=== PATIENT | male | born 1955 | race Caucasian/White ===

== ENCOUNTER 2018-08-02 12:30 | Day surgery (SDC) | payer OTHER ==
[2018-08-02] MEDS ORDERED: ASPIRIN EC 325 MG TAB PO ONE (12:39)
[2018-08-02] MEDS ORDERED: FAMOTIDINE 20 MG TAB PO ONE (12:39)
[2018-08-02] MEDS ORDERED: DIAZEPAM 5 MG TAB PO ONE (12:39)
[2018-08-02] MEDS ORDERED: diphenhydrAMINE 25 MG CAP PO ONE (12:39)
[2018-08-02] MEDS ORDERED: NS 1,000 ML IV ONE (12:39)
[2018-08-02 13:09] LABS: PLATELET COUNT 428 10^3/uL (150-400)
[2018-08-02] MEDS ORDERED: LIDOCAINE 1% 300 MG/30 ML SDV ONE (13:15)
[2018-08-02] MEDS ORDERED: MIDAZOLAM 2 MG/2 ML VIAL ONE (13:15)
[2018-08-02] MEDS ORDERED: IOPAMIDOL (ISOVUE-370) 150 ML BTL IV ONE (13:15)
[2018-08-02] MEDS ORDERED: fentaNYL 100 MCG/2 ML INJ ONE (13:15)
--- NOTE | 2018-08-02 13:17 | PDHPUP ---
History & Physical Update H&P update statement: This history and physical update is based on an assessment of the patient which was completed after admission or registration (within 24 hours), but prior to the surgery/procedure. H&P update: H&P reviewed & patient examined, no change in patient's condition since H&P completed
--- NOTE | 2018-08-02 13:17 | PDPROPOC ---
Sedation Plan of Care Sedation Plan of Care: vital signs stable, mental status noted, patient educated of risks, benefits, alternatives, patient can tolerate sedation ASA Classification: ASA 2 Planned drugs: fentanyl, midazolam Mallampati Score: Class 1 Mallampati Reference Image: Patient passed 3-3-2 rule?: Yes
[2018-08-02 13:18] LABS: INR 0.93 (0.83-1.16); PROTIME(PATIENT) 12.7 SEC (12.0-15.0)
[2018-08-02] MEDS ORDERED: ONDANSETRON 4 MG/2 ML VIAL IVP PRN (14:45)
[2018-08-02] MEDS ORDERED: NITROGLYCERIN 0.4 MG BTL SL PRN (14:45)
[2018-08-02] MEDS ORDERED: ATROPINE SULFATE 1 MG/10 ML SYR IVP PRN (14:45)
--- NOTE | 2018-08-02 14:50 | PDDXCAT ---
Diagnostic Cath Note - . Date: 08/02/18 Commissions Manager: Nikolai Indication: other (Symptoms of exertional dyspnea. Abnormal stress test with intermediate risk findings.) - Procedure Access: right groin - Materials Left Heart Cath materials: standard multipack (JL4, JR4, pigtail) - Findings-Left Heart Catheterization LM: Moderate caliber vessel. Very long course prior to developing the left anterior descending. Congenital absence of the circumflex. LAD: Moderate caliber vessel. 2 principal diagonal branches. Angiographically free of luminal disease. Evidence of eccentric calcifications of the coronary arteries proximally. 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 Minimal luminal irregularities without obstruction. RCA: Large caliber, dominant vessel. The PDA and large posterolateral branch are noted. Minimal luminal irregularities without obstruction. The circumflex originates from the proximal right coronary artery. EDP: 9 mmHg. LVEF: Greater than 70%. Wall motion: No ischemic appearing wall motion abnormalities. Complications: None. Estimated blood loss: <50ml Closure method: Angioseal Assessment: 1. No angiographic evidence of significant epicardial disease. 2. 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 3. Hyperdynamic left ventricular systolic function with no ischemic appearing wall motion abnormalities. 4. Low end-diastolic pressure. Plan: The patient will be evaluated for alternate etiologies for his symptoms. Intervention: None.
--- NOTE | 2018-08-02 16:04 | ECHO ---
[email or web address] [address] Main: [phone] Fax: [email or web address] Echocardiogram Name: LYLE CARLSON MR#: [id number] Study Date: 08/02/2018 Study Time: 01:46 PM Date of : 1955 Age: 62 year(s) Height: 182.9 cm (72 in.) Weight: 94.35 kg (208 lb.) BSA: 2.17 m2 Gender: Male Examination: Echo Indication: Shortness of breath, resting tachycardia Image Quality: Technically Difficult Contrast: Requested by: Anish Menchaca BP: 119 mmHg/84 mmHg Heart Rate: Rhythm: Indication: Shortness of breath, resting tachycardia Procedure Staff Glass Bender: Roseann Flores [facility] Reading Physician: Hugo Atkins MD Requesting Provider: Conclusions: Normal size left ventricle. Mild to moderate LVH. Normal global systolic LV function. EF is 66 %. Mildly dilated right ventricle. Low normal RV function. The mitral valve is normal in appearance and function. The aortic valve is tri-leaflet and functions normally. Right ventricular systolic pressure measures 38mmHg. Trivial pericardial effusion. No old studies for comparison. Measurements: Chambers Valvular Assessment AV/MV Valvular Assessment TV/PV Normal Normal Normal Name Value Range Name Value Range Name Value Range Ao Debbie (MM): 3.2 cm (2.2 cm-3.7 AV Vmax: 1.07 m/s (1 m/s-1.7 TR Vmax: 2.89 mm/s ( - ) cm) m/s) TR PGmax: 33 mmHg ( - ) IVSd (2D): 1.2 cm (0.6 cm-1.1 AV maxP mmHg ( - ) syst. PAP: 38 mmHg ( - ) cm) LVOT Vmax: 0.81 m/s (0.7 m/s-1.1 PV Vmax: 0.83 m/s (0.6 m/s-0.9 LVDd (2D): 4.3 cm (4.2 cm-5.9 m/s) m/s) cm) ENE (Vmax): 2.1 cm2 ( - ) PV PGmax: 3 mmHg ( - ) LVDs (2D): 2.2 cm (2.1 cm-4 MV E Vmax: 0.58 m/s ( - ) cm) MV A Vmax: 0.78 m/s ( - ) LVPWd (2D): 1.2 cm (0.6 cm-1 MV E/A: 0.74 ( - ) cm) LVOTd 1.9 cm 1.9 cm mm LVEF (BP): 66 % (>=55 %) RVDd(2D): 3.4 cm (1.9 cm-3.8 cmmm) Patient: LYLE CARLSON Study Date: 08/02/2018 Page 1 of 2 01:46 PM Continued Measurements: Chambers Valvular Assessment AV/MV Valvular Assessment TV/PV Name Value Name Value Name Value LADs: 3.7 cm MV DecTime: 137 m/s CVP (est.): 5 mmHg LADs Lon.2 cm MV E' Septal: 0.05 m/s LA Area: 16.6 cm2 MV E/E' Septal: 11.70 LA Volume: 41 ml MV E/E' Lateral: 14.20 LA Volume Index: 18.9 ml/m2 TAPSE: 1.6 cm RA Area: 11.3 cm2 Additional Vessels Name Value Ao Ascendin.2 cm Findings: Left Ventricle: Normal size left ventricle. Mild to moderate LVH. Normal global systolic LV function. EF is 66 %. No regional wall motion abnormality. Normal diastolic LV function. Right Ventricle: Mildly dilated right ventricle. Low normal RV function. Left Atrium: The left atrium is normal in size. Lipomatous interatrial septum. Right Atrium: The right atrium is normal in size. Mitral Valve: The mitral valve is normal in appearance and function. There is no mitral valve regurgitation. No mitral stenosis is present. Aortic Valve: The aortic valve is tri-leaflet and functions normally. There is no aortic valve regurgitation. No aortic valve stenosis is present. Tricuspid Valve: The tricuspid valve appears normal. Mild tricuspid regurgitation is present. Right ventricular systolic pressure measures 38mmHg. The pulmonary artery pressure is mildly increased. Pulmonic Valve: Pulmonary valve not well visualized. Aorta: Normal size aortic root measuring 3.2 cm. Normal size ascending aorta measuring 3.2 cm. IVC: Normal size and course of the IVC. Pericardium: Trivial pericardial effusion. (No Signature Object) Patient: LYLE CARLSON Study Date: 08/02/2018 Page 2 of 2 01:46 PM [id number]
--- NOTE | 2018-08-02 16:08 | CPEKG ---
Test Reason : OPEN Blood Pressure : / mmHG Vent. Rate : 104 BPM Atrial Rate : 104 BPM P-R Int : 140 ms QRS Dur : 091 ms QT Int : 350 ms P-R-T Axes : 022 -06 065 degrees QTc Int : 461 ms Sinus tachycardia Left atrial abnormality LVH with secondary repolarization abnormality Compared with 06/16/2018 HR faster, GIOVANI now noted. Repol abnl now seen Confirmed by Joanna Hoffman ([id number]) on 08/02/2018 4:08:29 PM Referred By: Confirmed By:Joanna Hoffman
[2018-08-02] MEDS ORDERED: IOPAMIDOL (ISOVUE 370) 100 ML BTL IV ONE (17:09)
== END 2018-08-02 18:15 | disposition home or self-care (01) ==
LOC: FCATH 12:30
PROVIDERS: ATTEND Internal Medicine Cardiovascular Disease
PROC: B2111ZZ Fluoroscopy of Multiple Coronary Arteries using Low Osmolar Contrast (ICD-10-PCS; principal; 2018-08-02)
PROC: B2151ZZ Fluoroscopy of Left Heart using Low Osmolar Contrast (ICD-10-PCS; principal; 2018-08-02)
PROC: 4A023N7 Measurement of Cardiac Sampling and Pressure, Left Heart, Percutaneous Approach (ICD-10-PCS; principal; 2018-08-02)
DX: R06.00 Dyspnea, unspecified (principal); R94.39 Abnormal result of other cardiovascular function study
CPT/HCPCS: C1760; J1644; J2250; J3010; Q9967

== ENCOUNTER → 2019-01-03 | Outpatient (CLI) | payer OTHER | LOC: FIMAGING 14:19 | PROVIDERS: ATTEND Family Medicine | DX: M25.851 Other specified joint disorders, right hip (principal); M16.7 Other unilateral secondary osteoarthritis of hip; Z96.642 Presence of left artificial hip joint ==

== ENCOUNTER 2019-02-06 07:58 | Inpatient (IN) | payer OTHER ==
[~2019-02-06 07:58] MED LIST: ROPIVACAINE 0.2% 80 MG, EPINEPHrine 0.2 MG, KETOROLAC TROMETHAMINE 30 MG in SYRINGE 0 ML IU ONE; TRANEXAMIC ACID 3,000 MG in NS (SYRINGE) 50 ML IRR ONE; TRANEXAMIC ACID 3,000 MG/50 ML BAG IRR ONE
[2019-02-06] MEDS ORDERED: FAMOTIDINE 20 MG TAB PO ONE (08:10)
[2019-02-06] MEDS ORDERED: ceFAZolin 2 GM/DEXTROSE 100 ML IV ONE (08:10)
[2019-02-06] MEDS ORDERED: ACETAMINOPHEN 325 MG TAB PO ONE (08:10)
[2019-02-06] MEDS ORDERED: LR 1,000 ML IV ONE (08:11)
[2019-02-06] MEDS ORDERED: MIDAZOLAM 2 MG/2 ML VIAL IVP ONE (09:35)
[2019-02-06] MEDS ORDERED: DIAZEPAM 5 MG/ML 1 ML SYR IVP PRN (09:37)
[2019-02-06] MEDS ORDERED: NALOXONE HCL 0.4 MG/ML INJ IVP PRN (09:37)
[2019-02-06] MEDS ORDERED: oxyCODONE IR 5 MG TAB PO PRN (09:37)
[2019-02-06] MEDS ORDERED: ACETAMINOPHEN 500 MG TAB PO PRN (09:37)
[2019-02-06] MEDS ORDERED: ONDANSETRON 4 MG/2 ML VIAL IVP PRN ×2 (09:37→11:23)
[2019-02-06] MEDS ORDERED: LR 500 ML IV PRN (09:37)
[2019-02-06] MEDS ORDERED: PROMETHAZINE HCL 25 MG/ML INJ IVP PRN ×2 (09:37→11:23)
[2019-02-06] MEDS ORDERED: ENALAPRILAT DIHYDRATE 1.25 MG/ML VIAL IVP PRN (09:37)
[2019-02-06] MEDS ORDERED: MIDAZOLAM 2 MG/2 ML VIAL ONE (09:37)
[2019-02-06] MEDS ORDERED: LABETALOL HCL 5 MG/ML 20 ML MDV IVP PRN (09:37)
--- NOTE | 2019-02-06 09:37 | PDANEPAE ---
ANE Past Medical History - Cardiovascular History Hx Hypertension: Yes Hx Arrhythmias: No Hx Chest Pain: No Hx Coronary Artery / Peripheral Vascular Disease: No Hx CHF / Valvular Disease: No Hx Palpitations: No - Pulmonary History Hx COPD: No Hx Asthma/Reactive Airway Disease: No Hx Recent Upper Respiratory Infection: No Hx Oxygen in Use at Home: No Hx Sleep Apnea: Yes Sleep Apnea Screening Result - Last Documented: Positive Pulmonary History Comment: CRESENCIO USES C-PAP - Neurologic History Hx Cerebrovascular Accident: No Hx Seizures: No Hx Dementia: No - Endocrine History Hx Diabetes: Yes Obesity: mild Endocrine History Comment: NIDDM. HYPOTHYROID - Renal History Hx Renal Disorders: Yes Renal History Comment: BPH - Liver History Hx Hepatic Disorders: No - Neurological & Psychiatric Hx Hx Neurological and Psychiatric Disorders: Yes Neurological / Psychiatric History Comment: ANXIETY/DEPRESSION. CLOSED HEAD INJURY 2014 - Cancer History Hx Cancer: Yes Cancer History Comment: SKIN - Congenital Disorder History Hx Congenital Disorders: No - GI History GERD: mild Hx Gastrointestinal Disorders: Yes Gastrointestinal History Comment: GERD - Other Health History Other Health History: DDD. NEW DX LEUKOCYTOSIS TO FU AFTER SURGERY - Chronic Pain History Chronic Pain: Yes (RT KNEE) - Surgical History Prior Surgeries: LITHOTRIPSY 05/2012. ORIF LT RADIUS/ELBOW. LT KNEE. LT TOTAL HIP 2014 ANE Review of Systems Review of Systems: - Exercise capacity METS (RN): 4 METS ANE Patient History - Allergies Allergies/Adverse Reactions: codeine Allergy (Verified 08/02/18 13:49) Vomiting prednisone Allergy (Verified 01/25/19 10:32) Agitated - Home Medications Home medications: home medication list seen and reviewed Home Medications: amLODIPine BESYLATE [Norvasc 10 mg (RX)] 10 mg PO DAILY 06/16/12 [Last Taken 07/18] Amphet Asp and D/Amphet [Adderall 20 mg (*)] 40 mg PO DAILY 08/02/18 [Last Taken 02/04/19] Aspirin [Aspirin 81mg (*)] 81 mg PO DAILY 08/02/18 [Last Taken 2 Weeks Ago ~] Atorvastatin Calcium [Lipitor 40 mg (*)] 80 mg PO HS 08/02/18 [Last Taken ] Cholecalciferol Vit D3 [Vitamin D3 2000 units tab (OTC)] 2,000 units PO HS 08/02 [Last Taken 2 Weeks Ago ~01/23/19] Hydrocodone/Acetaminophen [[place] 5/325 (*)] 1 - 2 tab PO Q4-6PRN PRN 08/02/18 [ Last Taken 02/05/19] Levothyroxine [Synthroid 125 mcg (*)] 125 mcg PO DAILY06 08/02/18 [Last Taken ] Metoprolol Tartrate [Lopressor 25 mg (*)] 12.5 mg PO BID 08/02/18 [Last Taken ] [place]-3 Fatty Acids [Fish Oil 1000 mg (*)] 1,000 mg PO HS 08/02/18 [Last Taken 2 Weeks Ago ~01/23/19] Pioglitazone HCl [Actos] 30 mg PO DAILY 08/02/18 [Last Taken 02/05/19] Valsartan/Hydrochlorothiazide [Valsartan-Hctz 320-25 mg Tab] 0.5 each PO BID 02/14 [Last Taken 02/05/19] buPROPion XL [Wellbutrin Xl] 300 mg PO DAILY 08/02/18 [Last Taken 02/06/19] lamoTRIgine [Lamictal] 225 mg PO HS 08/02/18 [Last Taken 02/05/19] metFORMIN HCL [Glucophage 1000 mg] 1,000 mg PO BID 08/02/18 [Last Taken 02/05/19 ] Glimepiride [Amaryl] 4 mg PO DAILY 01/25/19 [Last Taken 02/05/19] Omeprazole 20 mg PO HS 01/25/19 [Last Taken 02/05/19] Pramipexole Di-HCl [Mirapex 0.125 mg (*)] 0.25 mg PO HS 01/25/19 [Last Taken 07/18] - NPO status NPO Status: no food or drink >8 hours NPO Since - Liquids (Date): 02/06/19 NPO Since - Liquids (Time): 06:00 NPO Since - Solids (Date): 02/05/19 NPO Since - Solids (Time): 20:00 - Anes Hx Anes Hx: no prior problems - Smoking Hx Smoking Status: Never smoked ANE Labs/Vital Signs - Vital Signs Blood Pressure: 139/85 Heart Rate: 77 Respiratory Rate: 16 O2 Sat (%): 92 Height: 182.88 cm Weight: 91.626 kg ANE Physical Exam - Airway Neck exam: FROM Mallampati Score: Class 2 Mouth exam: normal dental/mouth exam - Pulmonary Pulmonary: no respiratory distress, no rales or rhonchi, clear to auscultation - Cardiovascular Cardiovascular: regular rate and rhythym, no murmur, rub, or gallop - ASA Status ASA Status: II ANE Anesthesia Plan Anesthesia Plan: spinal
[2019-02-06] MEDS ORDERED: PROPOFOL 200 MG/20 ML VIAL ONE ×2 (09:45→10:25)
[2019-02-06] MEDS ORDERED: DEXAMETHASONE 4 MG/ML VIAL ONE ×2 (09:45)
[2019-02-06] MEDS ORDERED: ONDANSETRON 4 MG/2 ML VIAL ONE (10:32)
[2019-02-06] MEDS ORDERED: PHENYLEPHRINE HCL 100 MCG/ML SYR ONE (10:36)
[2019-02-06] MEDS ORDERED: PROMETHAZINE HCL 25 MG SUPPR PR PRN (11:23)
[2019-02-06] MEDS ORDERED: ONDANSETRON DISINTEGRATING 4 MG TAB PO PRN (11:23)
[2019-02-06] MEDS ORDERED: LACTULOSE 20 GM/30 ML UDCUP PO PRN (11:23)
[2019-02-06] MEDS ORDERED: METOCLOPRAMIDE 10 MG/2 ML VIAL IVP PRN (11:23)
[2019-02-06] MEDS ORDERED: CYCLOBENZAPRINE 10 MG TAB PO PRN (11:23)
[2019-02-06] MEDS ORDERED: BISACODYL 10 MG SUPP PR PRN (11:23)
[2019-02-06] MEDS ORDERED: DIPHENOXYLATE/ATROPINE LOMOTIL 1 TAB PO PRN (11:23)
[2019-02-06] MEDS ORDERED: TEMAZEPAM 15 MG CAP PO PRN (11:23)
[2019-02-06] MEDS ORDERED: POLYETHYLENE GLYCOL 3350 17 GM PKT PO PRN (11:23)
[2019-02-06] MEDS ORDERED: diphenhydrAMINE 25 MG CAP PO PRN (11:23)
[2019-02-06] MEDS ORDERED: MAGNESIUM HYDROXIDE 30 ML UDCUP PO PRN (11:23)
--- NOTE | 2019-02-06 11:23 | POSTOPPROG ---
Post Op Note Date of Operation: 02/06/19 Surgeon: Aneta Crabtree Senior Java Architect: Norma TABOR Anesthesiologist: Dr. Pavan Fung Anesthesia: GET(General Endotracheal) Pre-op Diagnosis: right hip OA Post-op Diagnosis: same Indication: right hip pain Procedure: RTHA Findings: severe OA of right hip Inf/Abcess present in the surg proc area at time of surgery?: No EBL: 50-100
[2019-02-06] MEDS ORDERED: D50W 25 GM/50 ML SYR IVP PRN (11:28)
[2019-02-06] MEDS ORDERED: HYDROmorphONE/DILAUDID 1 MG/ML INJ ONE (11:34)
--- NOTE | 2019-02-06 11:47 | POSTANESTH ---
Post Anesthetic Evaluation Cardiovascular Status: Normal, Stable, Similar to Pre-Op Cond Respiratory Status: Normal, Stable, Similar to Pre-op Cond. Level of Consciousness/Mental Status: Can Participate in Eval, Mildly Sleepy, Arousable Pain Control: Adequate, Prn Tx Ordered Nausea/Vomiting Control: Adequate, Prn Tx Ordered Complications Possibly Related to Anesthesia: None Noted
[2019-02-06] MEDS ORDERED: oxyCODONE IR 5 MG TAB ONE (12:09)
[2019-02-06] MEDS: oxyCODONE IR 5 MG TAB PO PRN ×3 (12:10→21:45)
--- NOTE | 2019-02-06 12:30 | PDMN ---
Medical Necessity Medical necessity: Pt meets inpt criteria per MD order and [facility] Hip arthroplasty, IP only list, A-2 days. 63 y/o w.R hip OA/pain, admitted for R SWETHA and post-op care, AUTH#[id number] APPROVED FOR CPT 36887 INPT.
[2019-02-06] MEDS: INSULIN REGULAR HUMAN 100 UNIT/ML UNIT SC SCH ×3 (13:18→21:47)
[2019-02-06] MEDS: LR 1,000 ML IV SCH (14:04)
--- NOTE | 2019-02-06 15:25 | SOAPPROG ---
MARILY Progress Note Assessment/Plan: Assessment: s/p right SWETHA, anterior approach - procedure earlier today Plan: Begin d/c planning - likely home tomorrow. States he has the support of his . He reports having left SWTEHA several years ago and is familiar with the recovery Continue PT efforts - needs to be cleared from PT prior to d/c Continue pain medication - tolerating oral medication Continue VTE ppx - aspirin 81 mg BID x 4 weeks, MICHAEL huitron, SCDs. He will continue aspirin and MICHAEL hose at home. 02/06/19 15:25 Subjective: Patient states he is feeling ok, the pain is not as bad as he thought it would be. He is familiar with the recovery since he has had a left SWETHA in the past. Pain is being tolerated with pain medication. He denies SOB, chest pain, fever, chills, nausea, vomiting. Objective: Vital Signs Temp Pulse Resp BP Pulse Ox 36.4 C 79 15 122/73 H 100 02/06/19 14:47 02/06/19 14:47 02/06/19 14:47 02/06/19 14:47 02/06/19 14:47 02/05/19 02/06/19 02/07/19 05:59 05:59 05:59 Intake Total 1090 Output Total 200 Balance 890 Patient resting comfortably in bed, no acute distress. He appears a bit drowsy; this may be secondary to pain medication and/or history of TBI. RLE: surgical wound dressings are clean, dry and intact. Lower leg compartments are soft and nontender. He can actively DF and PF right foot and great toe against resistance. Grossly NVI distally. ICD10 Worksheet Patient Problems: Problems Problem Status Onset Unilateral primary osteoarthritis, right hip Acute
[2019-02-06] MEDS: ACETAMINOPHEN 325 MG TAB PO SCH ×2 (17:05→23:15)
[2019-02-06] MEDS: metFORMIN HCL 500 MG TAB PO SCH (17:08)
[2019-02-06] MEDS: ceFAZolin 2 GM/DEXTROSE 100 ML IV SCH (17:11)
[2019-02-06] MEDS ORDERED: PRAMIPEXOLE 0.25 MG TAB PO SCH (21:00)
[2019-02-06] MEDS ORDERED: ATORVASTATIN CALCIUM 40 MG TAB PO SCH (21:00)
[2019-02-06] MEDS: ASPIRIN 81 MG CHEWABLE TAB PO SCH ×2 (21:25→22:41)
[2019-02-06] MEDS: lamoTRIgine 100 MG TAB PO SCH ×2 (21:26→21:40)
[2019-02-06] MEDS: SENNOSIDES/DOCUSATE SODIUM TAB PO SCH (21:27)
[2019-02-06] MEDS: FAMOTIDINE 20 MG TAB PO SCH (21:29)
[2019-02-06] MEDS: lamoTRIgine 25 MG TAB PO SCH ×2 (21:29→21:48)
[2019-02-06] MEDS: VALSARTAN 80 MG TAB PO SCH (21:41)
[2019-02-06] MEDS: VALSARTAN/HCTZ 80-12.5MG TAB PO SCH (21:41)
[2019-02-06] MEDS: METOPROLOL TARTRATE 25 MG TAB PO SCH (21:48)
[2019-02-07] MEDS: ceFAZolin 2 GM/DEXTROSE 100 ML IV SCH (01:10)
[2019-02-07] MEDS: LR 1,000 ML IV SCH (01:10)
[2019-02-07] MEDS: ACETAMINOPHEN 325 MG TAB PO SCH (05:36)
[2019-02-07] MEDS: oxyCODONE IR 5 MG TAB PO PRN ×2 (05:39→09:22)
[2019-02-07] MEDS ORDERED: LEVOTHYROXINE 125 MCG TAB PO SCH (06:00)
[2019-02-07 07:15] VITALS: BP 113/67
--- NOTE | 2019-02-07 08:12 | GOP ---
[f rep st] OPERATIVE REPORT DATE OF OPERATION: 02/06/2019 SURGEON: Greg Crabtree MD TUBE CLEANING OPERATOR: Evie Aldana PA-C. ANESTHESIA: Spinal. PREOPERATIVE DIAGNOSIS: Right hip osteoarthritis. POSTOPERATIVE DIAGNOSIS: Right hip osteoarthritis. PROCEDURE PERFORMED: Right total hip arthroplasty with x-ray. FINDINGS: ESTIMATED BLOOD LOSS: 200 cc. INDICATIONS: The patient has progressively worsening arthritis of the hip which has failed medical m anagement. The patient understands the treatment options including continued non-operative care and has selected surgical intervention. The patient has decided to undergo total hip arthroplasty via th e direct anterior approach, understanding the risks of the procedure including, but not limited to, n eurovascular injury, infection, persistent pain, component wear and loosening, deep venous thrombosis , pulmonary embolism, limb length inequality, hip instability (including dislocation), and intra-oper ative fractures. DESCRIPTION OF PROCEDURE: After proper identification of the patient including verification and norah ing the surgical site, the patient was brought to the operating room and placed in the supine positio n. All bony prominences were well padded. Anesthesia was induced without complication and intraveno us prophylactic antibiotics were administered prior to skin incision. The operative leg was placed in the Trumpf Arch table extension and the well leg in a Yellofins leg h older. The patient was prepped and draped in the usual sterile fashion. The C-arm was draped for in tra-operative fluoroscopy to check acetabular position, femoral component position including leg karissa th and femoral offset. Attention was then drawn to surgical exposure of the hip. An incision was made with a #10 Bard [place]amo[place] r blade starting 3 cm lateral and 3 cm distal to the anterior superior iliac spine measuring 8-10 cm and coursing distally toward the greater trochanter. The skin and subcutaneous tissues were divided sharply down to the fascia octavio. The fascia octavio was incised in line with the skin incision exposing the underlying tensor fascia octavio muscle. The muscle was bluntly elevated from the fascia and the f irst extracapsular Cobra retractor was placed laterally at the junction of the superior femoral neck and greater trochanter. The lateral femoral circumflex vessels were identified, cauterized, and divi ded with the Aquamantys bipolar cautery. The deep investing fascia of the TFL was divided to allow p slade mobilization of the muscle preventing damage during the retraction. The reflected head of the rectus femoris muscle was elevated off the anterior hip capsule and a medial Cobra retractor was plac ed just proximal to the lesser trochanter. The anterior capsulotomy was made sharply from the superolateral acetabulum to the saddle junction of the superior femoral neck and greater trochanter, then coursing inferomedial towards the lesser troc hanter. The retractors were then placed in the intracapsular position for femoral neck osteotomy. C orresponding to pre-operative templating, the osteotomy was made with the oscillating saw carefully p rotecting the greater trochanter and soft tissues. The femoral head was removed from the acetabulum with a corkscrew and confirmed to be severely arthritic with exposed bone, deformity and osteophytes. Similar findings were confirmed in the acetabulum. The Arch table extension was then placed in 40 degrees external rotation. Attention was then drawn to the acetabular preparation. After placement of the anterior and posterio r Cobra retractors outside the labrum and intracapsular, the circumferential labrum was removed sharp ly. The foveal contents were then removed and hemostasis obtained with cautery. The first reamer selected was sized using the removed femoral head. Reaming began with medialization and then commenced in 2 mm increments at 45 degrees of abduction and 15 degrees of anteversion using fluoroscopic navigation. Reaming ceased 1 mm less than the definitive acetabular component and lea esponded to the pre-operative templating. The final acetabular component was inserted using fluorosc opy to achieve proper orientation yielding excellent purchase and stability in the acetabulum. The f inal acetabular liner was then placed and its seating confirmed. Attention was then turned to the femur. The Arch table extension was placed in extension and adducti on, delivering the osteotomized femoral neck into the wound. A 2-pronged femoral elevator was placed at the calcar and another at the tip of the greater trochanter. The posterolateral capsule was rele ased with cautery allowing mobilization of the femur lateral and anterior for preparation. The exter nal rotators were visualized and preserved. A curette and rongeur were used to open the starting poi nt for broaching. Serial broaching started with the #0 broach and ended with the broach that exhibit ed excellent fit in the proximal femur. A change in pitch during mallet strikes was accompanied by t he inability to advance the broach any further. The trial reduction was performed and fluoroscopic n avigation was utilized to check limb length. Adjustments were made to equalize limb length according ly. After the final trials were accepted they were removed and the wound was copiously lavaged. The femo ral component was seated to the same depth as the final broach and the femoral head was impacted onto the clean trunnion. The hip was then reduced for the final time and once more fluoroscopy was used to check that limb length equality was achieved. The wound was irrigated and closed in layers, the fascia octavio with 2-0 Quill, the subcutaneous tissue with 2-0 Quill, and the skin with Dermabond. Sterile dressings were applied. Final sharps and spon ge counts were accurate. The patient was then transferred to a hospital bed and [facility] in stable condition. IMPLANTS: Accolade II size 4 at 127. Acetabular component Trident II 54 mm. Liner is a Trident X3, 3 6 mm head with a Biolox Delta 36 mm -2.5. /[id number]/MODL
[2019-02-07] MEDS ORDERED: buPROPion XL 150 MG TAB PO SCH (09:00)
[2019-02-07] MEDS ORDERED: ADDERALL 20 MG TAB PO SCH (09:00)
[2019-02-07] MEDS ORDERED: PIOGLITAZONE HCL 15 MG TAB PO SCH (09:00)
[2019-02-07] MEDS ORDERED: GLIMEPIRIDE 2 MG TAB PO SCH (09:00)
[2019-02-07] MEDS: ASPIRIN 81 MG CHEWABLE TAB PO SCH (09:09)
[2019-02-07] MEDS: FAMOTIDINE 20 MG TAB PO SCH (09:11)
[2019-02-07] MEDS: metFORMIN HCL 500 MG TAB PO SCH (09:12)
[2019-02-07] MEDS: SENNOSIDES/DOCUSATE SODIUM TAB PO SCH (09:22)
--- NOTE | 2019-02-07 10:01 | SOAPPROG ---
SOAP Progress Note Assessment/Plan: Assessment: s/p right SWETHA, anterior approach - POD 1 Anemia: level is expected initially postop. Asymptomatic. Continue to monitor Plan: D/C home today - He will have the support of his . He reports having left SWETHA several years ago and is familiar with the recovery Continue PT efforts - needs to be cleared from PT prior to d/c Continue pain medication - tolerating oral medication - oxycodone, celebrex, flexeril Continue VTE ppx - aspirin 81 mg BID x 4 weeks, MICHAEL hose, SCDs. He will continue aspirin and MICHAEL hose at home. Zofran will be electronically prescribed from Dr. Crabtree's office. 02/07/19 09:58 Subjective: Patient states the right hip is feel pretty good, it feels better compared to when he had his left hip replaced. States he is feeling well enough to go home today. He would like to get a prescription for Zofran in case he experiences nausea at home. Patient denies shortness of breath, chest pain, fever, chills. Objective: Vital Signs Temp Pulse Resp BP Pulse Ox 36.6 C 93 14 113/67 99 02/07/19 07:15 02/07/19 07:15 02/07/19 07:15 02/07/19 07:15 02/07/19 07:15 Laboratory Results 02/07/19 04:54 02/06/19 02/07/19 02/08/19 05:59 05:59 05:59 Intake Total 4440 Output Total 1775 Balance 2665 Patient resting comfortably in bed, no acute distress, he is eating breakfast. RLE: Wound dressings are clean, dry and intact. Lower leg compartments are soft and nontender. Patient can actively DF and PF right foot and great toe against resistance. Grossly NVI distally. ICD10 Worksheet Patient Problems: Problems Problem Status Onset Unilateral primary osteoarthritis, right hip Acute
--- NOTE | 2019-02-07 10:08 | PDDCSUM ---
Discharge Summary Discharge Summary: ADMISSION DIAGNOSIS: Right hip severe degenerative arthritis DISCHARGE DIAGNOSIS: Right hip severe degenerative arthritis OPERATION PERFORMED: February 06, 2019 Right total hip arthroplasty POSTOPERATIVE COMPLICATIONS: None CONDITION ON DISCHARGE: Improved DESCRIPTION OF HOSPITAL COURSE: The patient was admitted to the hospital on the morning of surgery and underwent a right total hip arthroplasty, anterior approach. Postoperatively, patient was treated with multimodal DVT prophylaxis, including aspirin, SCDs and MICHAEL hose. Patient was seen by PT and made good progress with ambulation and stairs. On the first post-operative day the patient s H&H was 10.8/33.3. Patient was able to void spontaneously. At the time of discharge, patient was afebrile, wound was clean and dry. Patient is walking with a walker. DISPOSITION: The patient is discharged home with the support of his and may start outpatient PT in approximately 3 weeks. Patient may progress to full weightbearing on the right lower extremity as tolerated. MICHAEL stockings for 2 weeks during the daytime. Aspirin 81 mg BID for 4 weeks. Patient has prescriptions for Celebrex, oxycodone, Flexeril for pain control and muscle spasms. The patient will be seen by Dr. Lloyd office on 02/28/19. If there are any problems, patient is to call Dr. Lloyd office.
--- NOTE | 2019-02-07 10:25 | ASMTLACE ---
CHASE Length of stay for Answers: 2 days current admission Acuity / Level of Answers: Yes Care: Did the patient have an inpatient admission? Comorbidities - select Answers: Diabetes (uncontrolled or all that apply controlled) Opioid dependence / Chronic pain Other Notes: HTN # of Emergency department Answers: 0 visits in the last 6 months Social determinants Answers: Mental health diagnosis (anxiety, depression, pers onality disorders, etc.) Score: 14 Date Signed: 02/07/2019 10:24 AM Electronically Signed By:JANAE Price
[2019-02-07] MEDS: METOPROLOL TARTRATE 25 MG TAB PO SCH (10:26)
[2019-02-07] MEDS: INSULIN REGULAR HUMAN 100 UNIT/ML UNIT SC SCH (10:26)
[2019-02-07] MEDS: VALSARTAN 80 MG TAB PO SCH (10:27)
[2019-02-07] MEDS: VALSARTAN/HCTZ 80-12.5MG TAB PO SCH (10:27)
== END 2019-02-07 11:36 | disposition home or self-care (01) | DRG 470 ==
LOC: F3N 07:58
PROVIDERS: ADMIT Orthopaedic Surgery; ATTEND Orthopaedic Surgery
PROC: 0SR904Z Replacement of Right Hip Joint with Ceramic on Polyethylene Synthetic Substitute, Open Approach (ICD-10-PCS; principal; 2019-02-06 10:00)
DX: M16.11 Unilateral primary osteoarthritis, right hip (principal); G47.33 Obstructive sleep apnea (adult) (pediatric); E11.42 Type 2 diabetes mellitus with diabetic polyneuropathy; E03.9 Hypothyroidism, unspecified; E78.5 Hyperlipidemia, unspecified; I10 Essential (primary) hypertension; Z96.642 Presence of left artificial hip joint
CPT/HCPCS: 97110-GP; 97116-GP; 97161-GP; 97530-GP; J0171; J0690; J1100; J1170; J1815; J1885; J2250; J2270; J2370; J2405; J2550; J2704; J2795